=== PATIENT | male | born 1990 | race Caucasian/White ===

== ENCOUNTER 2020-12-09 00:08 | Emergency (ER) | payer BC ==
[2020-12-09 00:42] LABS: RED BLOOD COUNT 5.87 M/UL (4.20-5.50); WHITE BLOOD COUNT 16.1 K/UL (4.5-11.0)
[2020-12-09 00:57] LABS: BUN/CREATININE RATIO 19 (0-10)
[2020-12-09] MEDS ORDERED: ZOFRAN ODT 4 MG4 MG PO (03:07)
== END 2020-12-09 03:10 | disposition home or self-care (01) ==
LOC: ER1 00:08
PROVIDERS: Family Medicine
DX: R10.84 Generalized abdominal pain (principal); R11.2 Nausea with vomiting, unspecified; R19.7 Diarrhea, unspecified; R55 Syncope and collapse; Z20.822 Contact with and (suspected) exposure to COVID-19
CPT/HCPCS: 0240U; 80053; 83690; 85025; 87081; 87880; 93005; 96374; 99284; J2550; Q9967